=== PATIENT | male | born 1965 | race Caucasian/White ===

== ENCOUNTER 2022-05-15 00:54 | Emergency (ER) | payer OTHER ==
[2022-05-15] MEDS ORDERED: Dexamethasone 20 MG/5 ML VIAL ONE (01:25)
[2022-05-15] MEDS ORDERED: Colchicine 0.6 MG TAB PO SCH ×2 (01:30→02:15)
== END 2022-05-15 02:52 | disposition home or self-care (01) ==
LOC: NAV ERS 00:54
DX: M10.9 Gout, unspecified (principal)
CPT/HCPCS: 96372; 99283; J1100